=== PATIENT | female | born 1985 | race Caucasian/White ===

== ENCOUNTER 2017-03-01 05:19 | Inpatient (IN) ==
[2017-02-28 12:10] LABS: MANUAL DIFF NEEDED? NO; URINE SOURCE CLEAN CATCH
[2017-02-28 12:28] LABS: BASO% 0.4 % (0.0-0.8); EOS# 0.29 X1000 (0.0-0.7); EOS% 5.1 % (0.0-10.0); HEMATOCRIT 36.7 % (37.0-47.0); HEMOGLOBIN 11.7 g/dL (12.0-16.0); IMM GRAN# 0.01 X1000 (0.0-0.04); IMM GRAN% 0.2 % (0.0-0.5); LYMPH# 1.84 X1000 (1.2-3.4); LYMPH% 32.6 % (20.5-51.1); MCH 29.2 PG (27-31); MCHC 31.9 g/dL (33-37); MCV 91.5 FL (81-99); MONO# 0.44 X1000 (0.11-0.59); MONO% 7.8 % (1.7-9.3); NEUT% 53.9 % (42.2-75.2); PLT 283 X1000 (130-400); RBC 4.01 XMIL (4.2-5.4)
[2017-02-28 13:27] LABS: BILIRUBIN URINE NEGATIVE (NEGATIVE); BLOOD URINE 2+ (NEGATIVE); CLARITY CLEAR (CLEAR); COLOR YELLOW; GLUCOSE URINE NEGATIVE (NEGATIVE); LEUKOCYTES URINE TRACE (NEGATIVE); NITRITE URINE NEGATIVE (NEGATIVE); PH URINE 6.5; PROTEIN URINE NEGATIVE (NEGATIVE); SP GRAVITY URINE 1.015; URINE MICROSCOPIC NEEDED? YES; UROBILINOGEN URINE NORMAL
[2017-02-28 13:43] LABS: URINE EPITHELIAL CELLS >10 /HPF (<10)
--- NOTE | 2017-02-28 16:56 | HISTORY AND PHYSICAL ---
DATE OF PLANNED PROCEDURE: 03/01/2017 PREOPERATIVE DIAGNOSIS: Pelvic pain. SECONDARY DIAGNOSIS: High risk human papillomavirus. CONDITION: Stable. Ms. Barrios is a 31-year-old 5, para 5 who with the above diagnoses desires definitive treatment. PAST MEDICAL HISTORY: Significant for depression. PAST SURGICAL HISTORY: She has had a delivery x5, she had a tubal ligation at her last delivery and she had a LEEP done last year for cervical dysplasia after a high grade Pap smear. Her most recent Pap smear was negative that was in November 2015. ALLERGIES: She has no known drug allergies. MEDICATIONS: She takes Zoloft. FAMILY HISTORY: Noncontributory. SOCIAL HISTORY: She denies alcohol or drug abuse but she is a half voiz-pne-eif smoker. PHYSICAL EXAM: VITAL SIGNS: Weight 155, height 63, blood pressure 120/56. GENERAL: She is alert and cooperative, no distress. NECK: Supple. LUNGS: Clear. HEART: Regular sinus rhythm. ABDOMEN: Soft. PELVIC: Deferred. EXTREMITIES: No cyanosis, clubbing, edema in her extremities. ASSESSMENT: As above. PLAN: Abdominal hysterectomy with bilateral salpingectomy. cc: Moustapha Simeon MD
[2017-03-01] MEDS ORDERED: LR 1,000 ML IV SCH ×2 (05:22→10:42)
[2017-03-01] MEDS ORDERED: KEFZOL 1 GM/D5W 1 GM/50 ML IVPB IV ONE (06:00)
[2017-03-01] MEDS ORDERED: DIPRIVAN 1% ONE (06:34)
[2017-03-01] MEDS ORDERED: FENTANYL ONE (06:34)
[2017-03-01] MEDS ORDERED: ZOFRAN ONE (06:35)
[2017-03-01] MEDS ORDERED: ZEMURON ONE (06:35)
[2017-03-01] MEDS ORDERED: DECADRON ONE (06:35)
[2017-03-01] MEDS ORDERED: XYLOCAINE-MPF 2% ONE (06:35)
[2017-03-01] MEDS ORDERED: PEPCID ONE (06:44)
[2017-03-01] MEDS ORDERED: KEFZOL 1 GM/D5W 1 GM/50 ML IVPB ONE (06:44)
[2017-03-01] MEDS ORDERED: ROBINUL ONE (07:31)
[2017-03-01] MEDS ORDERED: NEOSTIGMINE ONE (07:31)
[2017-03-01] MEDS ORDERED: LR 1,000 ML ONE (08:18)
[2017-03-01] MEDS: DILAUDID ONE ×4 (08:26→08:43)
[2017-03-01] MEDS ORDERED: TORADOL ONE (08:26)
--- NOTE | 2017-03-01 08:30 | OPERATIVE NOTE ---
PROCEDURE DATE: 03/01/2017 PREOPERATIVE DIAGNOSIS: Pelvic pain, cervical dysplasia. POSTOPERATIVE DIAGNOSIS: Pelvic pain, cervical dysplasia. PROCEDURE: Abdominal hysterectomy with bilateral salpingectomy. PHYSICIAN: Dr. Moustapha Simeon. EKG MONITOR: Jennifer. ANESTHESIA: General endotracheal with Dr. Yang. FINDINGS: Slightly enlarged uterus. The bladder was scarred to the cervix. No complications: BLOOD LOSS: 50 mL. PATHOLOGY: Uterus, cervix and tubes. DRAINS: Fuentes catheter. DESCRIPTION OF PROCEDURE IN DETAIL: Please refer to Ms. Denis Pastor. She was brought to the operating room, placed under general endotracheal anesthesia, and prepped and draped in a supine position, Fuentes catheter being inserted. A Pfannenstiel skin incision made across the old scar through the subcuticular tissue to the fascia. The cut on the fascia was extended laterally with curved Rosario's. Rectus muscle was dissected from underneath the rectus fascia. The midline was identified, opened bluntly. Muscle pulled to the side. An O'Asher O'Gusman was placed along with a bladder blade. Then, the bowel was packed away and she was placed in steep Trendelenburg. The uterine fundus was grasped with the Vale tenaculum. Ovaries were noted to be normal. Bilateral fimbriectomy had previously been done, but the remaining tubes were dissected off with the LigaSure. Then the uterine ovarian round ligament grasped, cauterized and cut. Then the anterior and posterior leaves of the broad ligament grasped, cauterized, and cut to the internal cervical os. Then the bladder was sharply dissected off of the cervix and pushed down with the sponge stick exposing the uterine arteries, which were grasped, cauterized and cut. Then the cardinal ligaments grasped, cauterized and cut. Attention was then turned to the patient's left side where the same procedure was carried out. Once down close to the uterosacrals, curved clamps were placed at the corners grasping the uterosacrals, clamped, cut and suture ligated, thus entering the vagina, and then the cervix was detached and specimen was removed. The cuff was closed with a [id number] stitch of 0 Vicryl. Once this was done, there was some bleeding on the bladder edge, the bladder area was raw. So 2-0 chromic was used to reinforce the bladder and handled the bleeding. Surgicel was then placed across it just in case. Previous to that, irrigation had been done. There was no bleeding other than what was noted with the bladder, but once it was stitched it was not bleeding. So the Surgicel was placed and the retractor was removed. The laps were removed. Muscle and peritoneum were reapproximated in the midline with 3- 0 chromic. Fascia reapproximated with 1 Vicryl running nonlocking. Subcutaneous tissue irrigated. Kenia's fascia reapproximated with 3-0 chromic, and then skin was closed with 4-0 Biosyn subcuticularly. All counts were correct. She was taken to the recovery room in stable condition. cc: Moustapha Simeon MD
[2017-03-01] MEDS ORDERED: ZOFRAN IV PRN ×2 (09:19→10:42)
[2017-03-01] MEDS ORDERED: ZOFRAN ODT PO PRN (09:19)
[2017-03-01] MEDS: PYRIDIUM PO SCH ×3 (09:53→18:15)
[2017-03-01] MEDS: PRECARE PO SCH (09:53)
[2017-03-01 10:01] LABS: URINE SOURCE CATH
[2017-03-01] MEDS: COLACE PO SCH ×2 (10:04→20:41)
[2017-03-01] MEDS: PERIDEX MT SCH ×2 (10:12→20:41)
[2017-03-01 10:33] LABS: BILIRUBIN URINE NEGATIVE (NEGATIVE); BLOOD URINE NEGATIVE (NEGATIVE); CLARITY CLEAR (CLEAR); COLOR YELLOW; GLUCOSE URINE NEGATIVE (NEGATIVE); LEUKOCYTES URINE 2+ (NEGATIVE); NITRITE URINE NEGATIVE (NEGATIVE); PH URINE 6.5; PROTEIN URINE NEGATIVE (NEGATIVE); URINE MICROSCOPIC NEEDED? YES; UROBILINOGEN URINE NORMAL
[2017-03-01 10:37] LABS: URINE EPITHELIAL CELLS <10 /HPF (<10)
[2017-03-01] MEDS ORDERED: DILAUDID PCA VIAL IV PRN (10:42)
[2017-03-01] MEDS ORDERED: SODIUM CHLORIDE 0.9% INJ PRN (10:42)
[2017-03-01] MEDS ORDERED: PHENERGAN IV PRN (10:42)
[2017-03-01] MEDS ORDERED: NARCAN IV PRN (10:42)
[2017-03-01] MEDS ORDERED: TORADOL IV PRN (10:46)
[2017-03-01] MEDS: LR 1,000 ML IV SCH ×2 (11:22→17:58)
[2017-03-01] MEDS: TORADOL IV SCH ×2 (13:55→20:41)
[2017-03-02] MEDS: LR 1,000 ML IV SCH ×2 (00:32→05:53)
[2017-03-02] MEDS: TORADOL IV SCH ×2 (02:11→08:19)
[2017-03-02 06:19] LABS: MANUAL DIFF NEEDED? NO
[2017-03-02 06:52] LABS: BASO% 0.2 % (0.0-0.8); EOS# 0.03 X1000 (0.0-0.7); EOS% 0.3 % (0.0-10.0); HEMATOCRIT 29.9 % (37.0-47.0); HEMOGLOBIN 9.4 g/dL (12.0-16.0); IMM GRAN# 0.03 X1000 (0.0-0.04); IMM GRAN% 0.3 % (0.0-0.5); LYMPH# 2.03 X1000 (1.2-3.4); LYMPH% 22.6 % (20.5-51.1); MCHC 31.4 g/dL (33-37); MCV 92.3 FL (81-99); MONO# 0.83 X1000 (0.11-0.59); MONO% 9.2 % (1.7-9.3); MPV 10.6 FL (7.4-10.4); NEUT% 67.4 % (42.2-75.2); PLT 243 X1000 (130-400); RBC 3.24 XMIL (4.2-5.4)
[2017-03-02] MEDS: PERIDEX MT SCH ×2 (08:19→20:30)
[2017-03-02] MEDS: COLACE PO SCH ×2 (08:19→20:30)
[2017-03-02] MEDS: PYRIDIUM PO SCH ×3 (08:19→17:00)
[2017-03-02] MEDS: PRECARE PO SCH (08:19)
--- NOTE | 2017-03-02 10:25 | PROGRESS NOTE ---
DATE: 03/02/2017 SUBJECTIVE: She is postop day 1. Ms. Barrios is sitting up in bed. She is eating Cheerios for breakfast and has, so far, tolerated that but is not hungry for anything else. She has not yet ambulated. OBJECTIVE: Vital Signs: Temperature 97.4 degrees, blood pressure 94/51, pulse 68. She is cooperative. Neck supple. Lungs clear. Heart: Regular sinus rhythm. Abdomen is soft. Incision is still bandaged. No evidence of active bleeding. Extremities: No cyanosis, clubbing, or edema in her extremities. Her postoperative hemoglobin and hematocrit is 06/02. ASSESSMENT: day 1. PLAN: Advanced ambulation, discontinue Fuentes, uncover incision. Probable discharge in the morning. cc: Moustapha Simeon MD
[2017-03-02] MEDS: NORCO-10 PO PRN ×2 (14:15→20:34)
[2017-03-03] MEDS: NORCO-10 PO PRN ×2 (04:17→08:31)
[2017-03-03 08:24] VITALS: BP 100/58
[2017-03-03] MEDS: PERIDEX MT SCH (08:30)
[2017-03-03] MEDS: PRECARE PO SCH (08:31)
[2017-03-03] MEDS: PYRIDIUM PO SCH (08:31)
[2017-03-03] MEDS: COLACE PO SCH (08:31)
--- NOTE | 2017-03-03 20:25 | DISCHARGE SUMMARY ---
ADMISSION DATE: 03/01/2017 DISCHARGE DATE: 03/03/2017 PRINCIPAL DIAGNOSIS: Cervical dysplasia. PRINCIPAL PROCEDURE: Total abdominal hysterectomy, bilateral salpingectomy. HOSPITAL COURSE: Patient was admitted on 02/21/2017 for a scheduled total abdominal hysterectomy with bilateral salpingectomy and procedures were performed without complications. Patient was subsequently transferred to the 2nd floor once deemed stable. The patient has made excellent postoperative recovery. She notes no nausea or vomiting. She is tolerating her pain with p.o. medications. The patient is tolerating a regular diet. The patient is afebrile and vital signs remain stable. The patient is stable for discharge on postoperative day #2. CONDITION AT DISCHARGE: Stable. AMBULATION CAPACITY, INDEPENDENT FEEDING CAPACITY, INDEPENDENT LOCOMOTION CAPACITY, INDEPENDENT REHABILITATION CAPACITY: Good. PROGNOSIS: Good. DISCHARGE MEDICATIONS: Bertrand 10 mg 1-2 tabs p.o. q.6 hours p.r.n. pain. DISCHARGE INSTRUCTIONS: 1. The patient is to maintain a regular diet. 2. Physical activity as tolerated. The patient is ordered to maintain pelvic rest x6 weeks. 3. The patient is ordered to call or return if fever greater than 100.4, heavy vaginal bleeding, foul smelling vaginal discharge, persistent nausea or vomiting, pain not controlled with p.o. medications or any other acute changes. 4. The patient is to follow up with Dr. Simeon in 1 week. cc: MD Moustapha Rhodes MD
== END 2017-03-03 09:59 | disposition home or self-care (01) ==
LOC: P.WC 05:19
PROVIDERS: ADMIT Obstetrics & Gynecology; ATTEND Obstetrics & Gynecology